=== PATIENT | female | born 1995 | race Caucasian/White ===

== ENCOUNTER 2023-05-21 16:12 | Emergency (ER) | payer OTHER ==
[2023-05-21 16:41] VITALS: BP 110/57
[2023-05-21 17:19] LABS: BILIRUBIN,URINE NEGATIVE (NEGATIVE); GLUCOSE, URINE (UA) NEGATIVE (NEGATIVE); KETONES,URINE (UA) 40 mg/dL (NEGATIVE); LEUKOCYTE ESTERASE, URINE SMALL (NEGATIVE); NITRITE,URINE NEGATIVE (NEGATIVE); OCCULT BLOOD,URINE TRACE-INTA (NEGATIVE); PH,URINE 6.5 PH (5.0-7.5); PROTEIN,URINE NEGATIVE (NEGATIVE); UROBILINOGEN,URINE 0.2 (NORMAL) E.U./dL (NORMAL)
[2023-05-21 17:27] LABS: CLARITY,URINE HAZY (CLEAR)
[2023-05-21 17:28] LABS: HCG UR QUAL NEGATIVE
[2023-05-21] MEDS ORDERED: LIDOCAINE PATCH 5% TOP STA (17:30)
[2023-05-21] MEDS ORDERED: CYCLOBENZAPRINE 10 MG TABLET PO STA (17:30)
--- NOTE | 2023-05-21 17:33 | ED Physician Documentation ---
PD HPI BACK PAIN - Stated complaint Stated Complaint: BACK PX - Chief complaint Chief Complaint: Back Pain - History obtained from History obtained from: Patient - Additional information Additional information: Patient is a 27-year-old female presenting for evaluation of Left lower back pain radiating to the Left buttock. She states her symptoms started yesterday. She has had a prior episode of this recently. She and her significant other recently moved from [place]. Prior to the move she was lifting a heavy box and had similar pain that lasted for about a week. As they have recently moved here she has been unpacking boxes and moving things around and been doing more. She has been using ibuprofen with minimal improvement. No bowel or bladder incontinence, fever, falls or injuries. No IV drug use.No numbness or weakness. Review of Systems Constitutional: denies: Fever Cardiac: denies: Chest pain / pressure Respiratory: denies: Dyspnea GI: denies: Abdominal Pain, Vomiting : denies: Dysuria Musculoskeletal: reports: Back pain PD PAST MEDICAL HISTORY - Present Medications Home Medications: Ambulatory Orders Medication Instructions Recorded Confirmed Cyclobenzaprine [Flexeril] 10 mg PO TID PRN #20 tablet 05/21/23 Lidocaine Patch 5% [Lidoderm Patch] 1 patch TOP DAILY PRN #10 patch 05/21/23 - Allergies Allergies/Adverse Reactions: Allergies Allergy/AdvReac Type Severity Reaction Status Date / Time Sulfa (Sulfonamide Allergy Unknown Verified 05/21/23 16:35 Antibiotics) PD ED PE NORMAL - General General: Alert and oriented X 3, No acute distress, Well developed/nourished - HEENT HEENT: Atraumatic - Neck Neck: Supple, no meningeal sign - Cardiac Cardiac: RRR, Strong equal pulses - Respiratory Respiratory: No respiratory distress, Clear bilaterally - Abdomen Abdomen: Soft, Non tender - Back Back: No spinal TTP, Other (Left lower lumbar tenderness to palpation with no erythema or swelling, Numbness into left buttock) - Extremities Extremities: No deformity, Normal ROM s pain, No calf tenderness / cord Results - Vitals Vitals: Vital Signs - 24 hr 05/21/23 16:27 Temperature 36.6 C Heart Rate 77 Respiratory 20 Rate Blood Pressure 110/57 L O2 Saturation 99 Oxygen O2 Source Room air - Labs Labs: Laboratory Tests 05/21/23 17:06 Urine Color YELLOW Urine Clarity HAZY Urine pH 6.5 Ur Specific [place] 1.010 Urine Protein NEGATIVE Urine Glucose (UA) NEGATIVE Urine Ketones 40 H Urine Occult Blood TRACE-INTA Urine Nitrite NEGATIVE Urine Bilirubin NEGATIVE Urine Urobilinogen 0.2 (NORMAL) Ur Leukocyte Esterase SMALL H Urine RBC 0-5 Urine WBC 11-25 H Ur Squamous Epith Cells MANY Squamous H Urine Bacteria Moderate H Ur Microscopic Review INDICATED Urine Culture Comments NOT INDICATED Urine HCG, Qual NEGATIVE PD Medical Decision Making - ED course ED course: Patient is a 27-year-old female presenting for evaluation of atraumatic low back strain in the setting of recently moving.No red flag signs or symptoms in regards to her back pain. Urine analysis is reviewed. She has no symptoms to suggest a UTI and urine is not a clean-catch with many squamous epithelial cells. She is not . She does have tenderness to the left lower lumbar region into the buttock.Neurovascularly intact. No signs of cord compromise, epidural abscess or hematoma. Do not think x-ray would be helpful at this time and the patient does not have symptoms to suggest need for emergent MRI. Discussed options for treatment and patient is comfortable of trial with continued anti-inflammatories as well as adding on lidocaine patches and muscle relaxers. She is aware of need for close follow-up as well as advised on concerning Symptoms to return for. Departure - Departure Disposition: 01 Home, Self Care Clinical Impression: Radicular low back pain Condition: Stable Instructions: ED Low Back Pain Injury, ED Sciatica Prescriptions: Cyclobenzaprine [Flexeril] 10 mg PO TID PRN #20 tablet PRN Reason: Spasms Lidocaine Patch 5% [Lidoderm Patch] 1 patch TOP DAILY PRN #10 patch PRN Reason: pain Comments: I have sent prescriptions to help you with your symptoms including a muscle relaxer and lidocaine patches. Please continue with ibuprofen or acetaminophen. You may also want to try ice versus heat depending on which feels better and taking it easy over the weekend. I suspect that your symptoms are likely related to a muscle strain versus pinched nerve. If you develop any worsening symptoms such as fever, increased pain, weakness, trouble controlling bowel or bladder then please return to the emergency department. Discharge Date/Time: 05/21/23 18:06
[2023-05-21 17:34] LABS: BACTERIA,URINE Moderate /HPF (None Seen); RBC,URINE 0-5 /HPF (0-5); SQUAMOUS EPITHELIAL CELL,UR MANY Squamous (<= Few)
== END 2023-05-21 18:06 | disposition home or self-care (01) ==
LOC: ED 16:12
DX: M54.16 Radiculopathy, lumbar region (principal); S39.012A Strain of muscle, fascia and tendon of lower back, initial encounter; X50.0XXA Overexertion from strenuous movement or load, initial encounter; Y93.E6 Activity, residential relocation; Y92.009 Unspecified place in unspecified non-institutional (private) residence as the place of occurrence of the external cause
CPT/HCPCS: 81001; 81025; 99283; A9270; 81003; 87086

== ENCOUNTER 2023-09-29 14:45 | Emergency (ER) | payer OTHER ==
[2023-09-29 15:04] VITALS: BP 114/68; O2SAT 98
[2023-09-29 15:57] LABS: CORONAVIRUS 229E-RESP PCR NOT DETECTED; CORONAVIRUS HKU1-RESP PCR NOT DETECTED; CORONAVIRUS NL63-RESP PCR NOT DETECTED; CORONAVIRUS OC43-RESP PCR NOT DETECTED; HUMAN METAPNEUMOVIRUS NOT DETECTED; INFLUENZA A H1 2009- RESP PCR DETECTED; INFLUENZA A- RESP PCR PANEL NOT DETECTED; INFLUENZA B - RESP PCR PANEL NOT DETECTED; RHINOVIRUS/ENTEROVIRUS NOT DETECTED; SARS-CoV-2 -RESP PCR PANEL NOT DETECTED
[2023-09-29 15:58] LABS: B. PARAPERTUSSIS- RESP PCR PAN NOT DETECTED; B. PERTUSSIS- RESP PCR PANEL NOT DETECTED; C. PNEUMONIAE- RESP PCR PANEL NOT DETECTED; M. PNEUMONIAE- RESP PCR PANEL NOT DETECTED; PARAINFLUENZA VIRUS 1 NOT DETECTED; PARAINFLUENZA VIRUS 2 NOT DETECTED; PARAINFLUENZA VIRUS 3 NOT DETECTED; PARAINFLUENZA VIRUS 4 NOT DETECTED; RSV- RESP PCR PANEL NOT DETECTED
--- NOTE | 2023-09-29 17:36 | ED Physician Documentation ---
History of Present Illness - Stated complaint Stated Complaint: SOA/FEVER - Chief complaint Chief Complaint: Fever - Additonal information Additional information: 28-year-old female here for 2 days of cough congestion fever myalgias. She has not received the vaccine for flu this year. Unremarkable past medical history otherwise. Review of Systems Constitutional: reports: Fever, Chills, Myalgias, Fatigue Respiratory: reports: Dyspnea, Cough. 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 : None HEENT: None Psych: None Musculoskeletal: None Derm: None - Past Surgical History Past Surgical History: Yes General: Appendectomy HEENT: Other - Present Medications Home Medications: Ambulatory Orders Medication Instructions Recorded Confirmed Cyclobenzaprine [Flexeril] 10 mg PO TID PRN #20 tablet 05/21/23 Lidocaine Patch 5% [Lidoderm Patch] 1 patch TOP DAILY PRN #10 patch 05/21/23 Oseltamivir Phosphate [Tamiflu] 75 mg PO BID #10 cap 09/29/23 - Allergies Allergies/Adverse Reactions: Allergies Allergy/AdvReac Type Severity Reaction Status Date / Time Sulfa (Sulfonamide Allergy Unknown Verified 09/29/23 14:49 Antibiotics) - Social History Does the pt smoke?: No Smoking Status: Never smoker Does the pt drink ETOH?: No Does the pt have substance abuse?: No - Immunizations Immunizations are current?: Yes - POLST Patient has POLST: No PD ED PE NORMAL - General General: Alert and oriented X 3, No acute distress - HEENT HEENT: Atraumatic - Cardiac Cardiac: No: RRR (Mild tachycardia rate of 110) - Respiratory Respiratory: No respiratory distress, Clear bilaterally - Abdomen Abdomen: Normal bowel sounds, Soft, Non tender - Derm Derm: Normal color, Warm and dry, No rash - Extremities Extremities: No deformity - Neuro Neuro: Alert and oriented X 3 Eye Opening: Spontaneous Motor: Obeys Commands Verbal: Oriented GCS Score: 15 Results - Vitals Vitals: Vital Signs - 24 hr 09/29/23 14:50 Temperature 37.3 C Heart Rate 110 H Respiratory 18 Rate Blood Pressure 114/68 O2 Saturation 98 Oxygen O2 Source Room air - Labs Labs: Laboratory Tests 09/29/23 14:55 Nasal Adenovirus (PCR) NOT DETECTED Nasal B. parapertussis DNA (PCR) NOT DETECTED Nasal Coronavir 229E PCR NOT DETECTED Nasal Coronavir HKU1 PCR NOT DETECTED Nasal Coronavir NL63 PCR NOT DETECTED Nasal Coronavir OC43 PCR NOT DETECTED Nasal Enterovir/Rhinovir PCR NOT DETECTED Nasal Influ A H1 2009 PCR DETECTED A Nasal Influenza B PCR NOT DETECTED Nasal Influenza A PCR NOT DETECTED Nasal Parainfluen 1 PCR NOT DETECTED Nasal Parainfluen 2 PCR NOT DETECTED Nasal Parainfluen 3 PCR NOT DETECTED Nasal Parainfluen 4 PCR NOT DETECTED Nasal RSV (PCR) NOT DETECTED Nasal B.pertussis DNA PCR NOT DETECTED Nasal C.pneumoniae (PCR) NOT DETECTED Howie Human Metapneumo PCR NOT DETECTED Nasal M.pneumoniae (PCR) NOT DETECTED Nasal SARS-CoV-2 (PCR) NOT DETECTED PD Medical Decision Making - ED course Complexity details: reviewed results, d/w patient ED course: 28-year-old female who is otherwise healthy presents for 2 days of cough, cold, congestion, fevers, fatigue. She has tested positive for influenza A. Cardiopulmonary auscultation revealed mild tachycardia but no worrisome breath sounds. Room air sats are 98%. She is within the timeframe for consideration of Tamiflu and would like the prescription. I have sent this to the [facility] in [place]. The usual conservative care measures as well as emergent return precautions were discussed. Departure - Departure Disposition: 01 Home, Self Care Clinical Impression: Influenza A Condition: Stable Record reviewed to determine appropriate education?: Yes Instructions: Medication: Tamiflu (Oseltamivir), ED Flu Prescriptions: Oseltamivir Phosphate [Tamiflu] 75 mg PO BID #10 cap Comments: You have tested positive for influenza A. This is the virus that causes the seasonal flu. It causes body aches fever congestion fatigue and malaise. I am prescribing Tamiflu medication that is an antiviral medicine. Will help shorten the duration of your symptoms. In general you need to stay very well-hydrated. I do recommend that you alternate 500 mg of Tylenol 3 times a day with 600 mg of ibuprofen 3 times a day. This will help with fevers and body aches. You can probably expect a cough to last between 7 and 10 days. Your fever should last somewhere around 3 to 5 days. If you are still having fevers after a week we need to see you again. I do recommend that you get the flu vaccine after you recover from this episode of the fluid you can get sick again this winter with the same virus. Return to the ER if you are having any new or worsening symptoms.
== END 2023-09-29 17:48 | disposition home or self-care (01) ==
LOC: ED 14:45
DX: J10.1 Influenza due to other identified influenza virus with other respiratory manifestations (principal); Z11.52 Encounter for screening for COVID-19
CPT/HCPCS: 87633; 99283

== ENCOUNTER 2024-03-01 08:00 | Outpatient (CLI) | payer OTHER ==
[2024-03-01 08:46] LABS: BILIRUBIN,URINE NEGATIVE (NEGATIVE); GLUCOSE, URINE (UA) NEGATIVE (NEGATIVE); KETONES,URINE (UA) TRACE mg/dL (NEGATIVE); LEUKOCYTE ESTERASE, URINE SMALL (NEGATIVE); NITRITE,URINE NEGATIVE (NEGATIVE); OCCULT BLOOD,URINE NEGATIVE (NEGATIVE); PROTEIN,URINE NEGATIVE (NEGATIVE); UROBILINOGEN,URINE 0.2 (NORMAL) E.U./dL (NORMAL)
[2024-03-01 08:48] LABS: CLARITY,URINE SL. CLOUDY (CLEAR)
[2024-03-01 09:20] LABS: AMORPHOUS SEDIMENT,UR Moderate /LPF; BACTERIA,URINE Moderate /HPF (None Seen); RBC,URINE 0-5 /HPF (0-5); SQUAMOUS EPITHELIAL CELL,UR MANY Squamous (<= Few)
== END 2024-03-01 23:59 | disposition home or self-care (01) ==
LOC: LAB.WC 08:00
PROVIDERS: ATTEND Nurse Practitioner
DX: Z34.90 Encounter for supervision of normal pregnancy, unspecified, unspecified trimester (principal)
CPT/HCPCS: 81001; 87086

== ENCOUNTER 2024-03-03 09:56 | Outpatient (CLI) | payer OTHER ==
[2024-03-03 12:09] LABS: BASOPHILS # (AUTO) 0.1 10^3/uL (0.0-0.1); BASOPHILS % (AUTO) 0.7 %; EOSINOPHILS # (AUTO) 0.1 10^3/uL (0.0-0.7); EOSINOPHILS % (AUTO) 1.7 %; HCT - HEMATOCRIT 42.3 % (37.0-47.0); HGB - HEMOGLOBIN 14.3 g/dL (12.0-16.0); LYMPHOCYTES # (AUTO) 1.8 10^3/uL (1.5-3.5); LYMPHOCYTES % (AUTO) 25.3 %; MEAN CORPUSCULAR HGB CONC 33.8 g/dL (32.0-36.0); MEAN CORPUSCULAR VOLUME 85.8 fL (81.0-99.0); MEAN PLATELET VOLUME 10.9 fL (7.9-10.8); MONOCYTES # (AUTO) 0.3 10^3/uL (0.0-1.0); MONOCYTES % (AUTO) 4.7 %; NEUTROPHILS # (AUTO) 4.8 10^3/uL (1.5-6.6); NEUTROPHILS % (AUTO) 67.5 %; PLT - PLATELET COUNT 248 10^3/uL (130-450); RED BLOOD COUNT 4.93 10^6/uL (4.20-5.40); RED CELL DISTRIBUTION WIDTH 12.9 % (12.0-15.0); WHITE BLOOD COUNT 7.2 x10^3/uL (4.8-10.8)
[2024-03-04 06:12] LABS: HBsAG SCREEN Negative (Negative); RPR Non Reactive (Non Reactive)
[2024-03-04 09:09] LABS: VARICELLA-ZOSTER AB IGG 575 index (Immune >165)
[2024-03-05 09:07] LABS: HIV SCREEN 4TH GENERATION Non Reactive (Non Reactive)
[2024-03-05 12:07] LABS: HCV AB Non Reactive (Non Reactive)
== END 2024-03-03 09:57 | disposition home or self-care (01) ==
LOC: LAB.N 09:56
PROVIDERS: ATTEND Nurse Practitioner
DX: Z34.90 Encounter for supervision of normal pregnancy, unspecified, unspecified trimester (principal)
CPT/HCPCS: 36415; 85025; 86592; 86762; 86787; 86803; 86850; 86900; 86901; 87340; 87389

== ENCOUNTER 2024-03-21 12:11 | Outpatient (CLI) | payer OTHER ==
--- NOTE | 2024-03-21 14:26 | Ultrasound Report ---
PROCEDURE: OB 1st Trimester INDICATIONS: POSITIVE TEST OUTSIDE/PRIOR DATING DATA: Last menstrual period (LMP): 01/06/2024. LMP-based estimated date of delivery (DARRELL): 10/12/2024. First dating scan (date and location): Today's exam. Estimated date of delivery (DARRELL) from first dating scan: 10/15/2024. TECHNIQUE: Real-time scanning was performed of the fetus and maternal pelvic organs, with image documentation. COMPARISON: None. FINDINGS: Intrauterine gestational sac present. Embryo: Present, measuring 3.44 cm, 10 weeks 2 days Heart rate: 169 bpm. Other: No perigestational fluid collection. Measurement variability in dating: +/- 4 weeks by LMP, +/- 7 days by mean sac diameter (use before 6 weeks gestation if crown-rump length not able to be measured), +/- 5 days by crown-rump length (6-12 weeks gestation). Maternal organs: Ovaries appear within normal limits. Right-sided corpus luteum present. IMPRESSION: Single living intrauterine at 10 weeks 2 days, DARRELL of 10/15/2024. Reviewed by: Deon Aguirre MD on 03/21/2024 2:24 PM PDT Approved by: Deon Aguirre MD on 03/21/2024 2:24 PM PDT Station ID: [id number]
== END 2024-03-21 12:12 | disposition home or self-care (01) ==
LOC: DI 12:11
PROVIDERS: ATTEND Nurse Practitioner
DX: Z34.91 Encounter for supervision of normal pregnancy, unspecified, first trimester (principal)

== ENCOUNTER 2024-03-28 08:00 | Outpatient (CLI) | payer OTHER ==
[2024-03-29 20:05] LABS: CHLAMYDIA TRACHOMATIS DNA NEGATIVE (NEGATIVE); NEISSERIA GONORRHOEAE DNA NEGATIVE (NEGATIVE); TRICHOMONAS VAGINALIS DNA NEGATIVE (NEGATIVE)
== END 2024-03-28 23:59 | disposition home or self-care (01) ==
LOC: LAB.WC 08:00
PROVIDERS: ATTEND Obstetrics & Gynecology
DX: Z11.3 Encounter for screening for infections with a predominantly sexual mode of transmission (principal)
CPT/HCPCS: 87491; 87591; 87661

== ENCOUNTER 2024-04-03 08:14 | Outpatient (CLI) | payer OTHER | END 2024-04-03 08:15 | disposition home or self-care (01) | LOC: LAB 08:14 | PROVIDERS: ATTEND Obstetrics & Gynecology | DX: Z34.01 Encounter for supervision of normal first pregnancy, first trimester (principal); Z36.89 Encounter for other specified antenatal screening ==

== ENCOUNTER 2024-04-10 18:58 | Emergency (ER) | payer OTHER ==
--- NOTE | 2024-04-10 20:10 | Ultrasound Report ---
PROCEDURE: OB 1st Trimester INDICATIONS: GLF OUTSIDE/PRIOR DATING DATA: Last menstrual period (LMP): 01/06/2024. LMP-based estimated date of delivery (DARRELL): 10/12/2024. First dating scan (date and location): 03/21/2024. Estimated date of delivery (DARRELL) from first dating scan: 10/15/2024. TECHNIQUE: Real-time scanning was performed of the fetus and maternal pelvic organs, with image documentation. COMPARISON: Prior OB ultrasound 03/21/2024. FINDINGS: Intrauterine gestational sac present. Embryo: Single living intrauterine gestation, posterior placenta, heart rate observed. [place]-r ump length is 7.5 cm which correlates with a current gestational age of 13 weeks 4 days. Heart rate: 157 bpm. Other: No perigestational fluid collection. There has been appropriate interval growth with reference to the first OB ultrasound. Measurement variability in dating: +/- 4 weeks by LMP, +/- 7 days by mean sac diameter (use before 6 weeks gestation if crown-rump length not able to be measured), +/- 5 days by crown-rump length (6-12 weeks gestation). Maternal organs: Ovaries appear within normal limits. IMPRESSION: No evidence of placental abruption or demise. Appropriate interval growth, viable intrauterine gestation. The delivery date is projected to be centered on 10/15/2024 +/- 5 days based on the first O B ultrasound. Reviewed by: Daniel Alvares MD on 04/10/2024 8:09 PM PDT Approved by: Daniel Alvares MD on 04/10/2024 8:09 PM PDT Station ID: [id number]
--- NOTE | 2024-04-10 20:43 | ED Physician Documentation ---
History of Present Illness - Stated complaint Stated Complaint: GLF/13+WKS PREG - Chief complaint Chief Complaint: General - History obtained from History obtained from: Patient - Additonal information Additional information: The patient comes to the emergency department chief complaint of lower abdominal cramping after hitting her back against a counter today. She is 13 weeks and states that somebody she was working with fell into her, causing her to stumble backward and hit her back against a counter. She states that after that, she had a dull cramping across her low abdomen. No vaginal bleeding. She had not been having any symptoms prior to this. No dysuria. No frequency. No fevers or chills. No nausea or vomiting. PD PAST MEDICAL HISTORY - Past Medical History Cardiovascular: None Respiratory: None Neuro: None Endocrine/Autoimmune: None GI: None NURSE CLINICAL: None : None HEENT: None Psych: None Musculoskeletal: None Derm: None - Past Surgical History Past Surgical History: Yes General: Appendectomy HEENT: Other - Present Medications Home Medications: Ambulatory Orders Medication Instructions Recorded Confirmed Cyclobenzaprine [Flexeril] 10 mg PO TID PRN #20 tablet 05/21/23 Lidocaine Patch 5% [Lidoderm Patch] 1 patch TOP DAILY PRN #10 patch 05/21/23 Oseltamivir Phosphate [Tamiflu] 75 mg PO BID #10 cap 09/29/23 - Allergies Allergies/Adverse Reactions: Allergies Allergy/AdvReac Type Severity Reaction Status Date / Time Sulfa (Sulfonamide Allergy Unknown Verified 04/10/24 19:08 Antibiotics) - Social History Does the pt smoke?: No Smoking Status: Never smoker Does the pt drink ETOH?: No Does the pt have substance abuse?: No - Immunizations Immunizations are current?: Yes - POLST Patient has POLST: No PD ED PE NORMAL - Vitals Vital signs reviewed: Yes - General General: Alert and oriented X 3, No acute distress, Well developed/nourished - HEENT HEENT: Atraumatic, EOMI, Moist mucous membranes - Neck Neck: Supple, no meningeal sign - Cardiac Cardiac: RRR, No murmur - Respiratory Respiratory: No respiratory distress, Clear bilaterally - Abdomen Abdomen: Soft, Non tender, Other (Appears slightly gravid, consistent with dates.) - Derm Derm: Normal color, Warm and dry, No rash - Extremities Extremities: No deformity - Neuro Neuro: Other (Alert, grossly intact.) - Psych Psych: Normal mood, Normal affect Results - Vitals Vitals: Vital Signs - 24 hr 04/10/24 19:03 Temperature 36.3 C L Heart Rate 86 Respiratory 16 Rate Blood Pressure 113/69 O2 Saturation 100 Oxygen O2 Source Room air - Rads (name of study) OB ultrasound Relevant Findings:: Prelim report reviewed (No concerning findings.) PD Medical Decision Making - ED course Complexity details: reviewed results, re-evaluated patient, considered differential, d/w patient, d/w family ED course: The patient's exam was benign and she was not having any bleeding. Her ultras ound was reassuring with no abnormalities and a viable intrauterine with good heart rate. I discussed with the patient that at this point, there is no evidence of any atraumatic stress to the . We have discussed usual indications for follow-up and return. Departure - Departure Disposition: 01 Home, Self Care Clinical Impression: Abdominal pain affecting Condition: Stable Instructions: Preg 2nd Trimester Comments: Your ultrasound looks great. There is no evidence of any abnormality with the or its structures. The baby's heart rate is well within normal limits. You may take Tylenol as needed for any discomfort. Although it is not clear exactly what is causing the cramping, and may just be related to your back pain and most likely, will resolve on its own. Please follow-up with your TECHNOLOGY SALES REPRESENTATIVE for further concerns.
[2024-04-10 20:59] VITALS: BP 114/66; O2SAT 99
== END 2024-04-10 20:50 | disposition home or self-care (01) ==
LOC: ED 18:58
DX: O99.891 Other specified diseases and conditions complicating pregnancy (principal); M54.9 Dorsalgia, unspecified; R10.30 Lower abdominal pain, unspecified; W22.09XA Striking against other stationary object, initial encounter; Y93.89 Activity, other specified; Y92.511 Restaurant or cafe as the place of occurrence of the external cause; Y99.0 Civilian activity done for income or pay; Z3A.13 13 weeks gestation of pregnancy
CPT/HCPCS: 1040M; 76801; 99283; 99284

== ENCOUNTER 2024-05-05 08:01 | Outpatient (CLI) | payer OTHER ==
[2024-05-08 13:10] LABS: AFP MOM 1.37 (.); AFP VALUE 46.6 ng/mL (.); GEST. AGE ON COLLECTION DATE 16.7 weeks (.); GESTAT. AGE METHOD Ultrasound (.); INSULIN DEP DIABETES No (.); MATERNAL AGE AT EDD 28.3 yr (.); MULTIPLE GESTATION No (.); OPEN SPINA BIFIDA RISK 1 IN 3920 (.); RACE Caucasian (.); RESULTS Report (.); TEST RESULTS *Screen Negative* (.); WEIGHT 171 lbs (.)
== END 2024-05-05 08:02 | disposition home or self-care (01) ==
LOC: LAB 08:01
PROVIDERS: ATTEND Obstetrics & Gynecology
DX: Z36.89 Encounter for other specified antenatal screening (principal)
CPT/HCPCS: 36415; 82105

== ENCOUNTER 2024-05-30 08:07 | Outpatient (CLI) | payer OTHER ==
--- NOTE | 2024-05-30 12:39 | Ultrasound Report ---
PROCEDURE: OB Anatomy Scan INDICATIONS: SUPERVISON OF OUTSIDE/PRIOR DATING DATA: Last menstrual period (LMP): 01/06/2024. LMP-based estimated date of delivery (DARRELL): 10/12/2024. First dating scan (date and location): 03/21/2024. Estimated date of delivery (DARRELL) from first dating scan: 10/15/2024. The below data below was generated using the ultrasound DARRELL of 10/15/2024 TECHNIQUE: Real-time scanning was performed of the fetus, with image documentation and biometric measurements. Endovaginal scanning: Not performed. COMPARISON: 04/10/2024 FINDINGS: General: A single living intrauterine gestation is present. Presentation: Variable Placenta: Placental position is posterior, without previa. Amniotic fluid index: 13.5 cm, within normal limits for gestational age. heart rate: 150 beats per minute. Maternal cervical canal: 3.7 cm long; normal length is 2.5 cm or more. biometrics: Biparietal diameter: 4.7 cm, 20 weeks 2 days, 30% Head circumference: 17.9 cm, 20 weeks 2 days, 25% Abdominal circumference: 15.7 cm, 20 weeks 6 days, 49% Femur length: 3.2 cm, 20 weeks 0 days, 19.5% Estimated gestational age from initial scan: 20 weeks 5 days Composite gestational age from present scan: 20 weeks 2 days Estimated weight and percentile: 356 g, 32% Measurement variability in biometric dating: +/- 10 days from 12-20 weeks gestation, +/- 2 weeks from 20-30 weeks gestation, +/- 3 weeks at 30 weeks gestation or later. Anatomic survey: Neuro: Ventricles are normal at less than 10 mm. Cisterna magna is normal at 3-11 mm. Cerebellum i s normal in size and morphology. Nuchal skin fold: Normal at less than 6 mm between 14 and 20 weeks gestational age. Face: Nose and lips, facial profile are normal. Spine: No evidence for spina bifida. Heart: 4-chambered heart is present, with normal ventricular outflow tracts. Diaphragm: Diaphragm is intact. Stomach: Left-sided stomach is present. Kidneys: No hydronephrosis. Normal is less than 5 mm in 2nd trimester, less than 7 mm in 3rd trimester. Cord: 3 vessel cord has orthotopic insertion. Bladder: Normal in size. Extremities: All 4 extremities are visualized. IMPRESSION: 1.Single live intrauterine consistent with 20 weeks and 2 days. 2.Normal anatomic survey. Reviewed by: Caio Jordan MD on 05/30/2024 12:38 PM PDT Approved by: Caio Jordan MD on 05/30/2024 12:38 PM PDT Station ID: [id number]
== END 2024-05-30 08:08 | disposition home or self-care (01) ==
LOC: DI 08:07
PROVIDERS: ATTEND Obstetrics & Gynecology
DX: Z34.92 Encounter for supervision of normal pregnancy, unspecified, second trimester (principal); Z36.89 Encounter for other specified antenatal screening

== ENCOUNTER 2024-07-19 07:50 | Outpatient (CLI) | payer OTHER ==
[2024-07-19 09:02] LABS: HCT - HEMATOCRIT 34.7 % (37.0-47.0); HGB - HEMOGLOBIN 11.6 g/dL (12.0-16.0); MEAN CORPUSCULAR HEMOGLOBIN 30.8 pg (27.0-31.0); MEAN CORPUSCULAR HGB CONC 33.4 g/dL (32.0-36.0); MEAN PLATELET VOLUME 9.5 fL (7.9-10.8); RED BLOOD COUNT 3.77 10^6/uL (4.20-5.40); RED CELL DISTRIBUTION WIDTH 13.3 % (12.0-15.0); WHITE BLOOD COUNT 10.1 x10^3/uL (4.8-10.8)
[2024-07-20 07:10] LABS: RPR Non Reactive (Non Reactive)
== END 2024-07-19 07:51 | disposition home or self-care (01) ==
LOC: LAB 07:50
PROVIDERS: ATTEND Obstetrics & Gynecology
DX: Z34.90 Encounter for supervision of normal pregnancy, unspecified, unspecified trimester (principal); Z36.89 Encounter for other specified antenatal screening
CPT/HCPCS: 36415; 82950; 85027; 86592

== ENCOUNTER 2024-10-13 04:52 | Inpatient (IN) ==
[2024-10-13] MEDS ORDERED: LABETALOL 20 MG/4 ML SYRINGE IVP PRN ×4 (05:14→21:26)
[2024-10-13] MEDS ORDERED: TRANEXAMIC ACID IN NACL 1,000 MG/100 ML BAG IV PRN (05:14)
[2024-10-13] MEDS ORDERED: NIFEdipine 10 MG CAPSULE PO PRN ×2 (05:14→21:26)
[2024-10-13] MEDS ORDERED: OXYTOCIN 10 UNIT/ML VIAL IM PRN (05:14)
[2024-10-13] MEDS ORDERED: SODIUM CHLORIDE FLUSH 0.9% 10 ML SYRINGE IVP PRN (05:14)
[2024-10-13] MEDS ORDERED: TERBUTALINE 1 MG/ML VIAL SUBQ PRN (05:14)
[2024-10-13] MEDS ORDERED: OXYTOCIN/SODIUM CHLORIDE 500 ML IV PRN (05:14)
[2024-10-13] MEDS ORDERED: hydrALAZINE INJ 20 MG/ML VIAL IVP PRN (05:14)
[2024-10-13] MEDS ORDERED: miSOPROStoL 200 MCG TABLET BC PRN (05:14)
[2024-10-13] MEDS ORDERED: METHYLERGONOVINE 0.2 MG/ML VIAL IM PRN (05:14)
[2024-10-13] MEDS ORDERED: lidocaine 1% 20 ML MDV ID PRN (05:14)
[2024-10-13] MEDS ORDERED: miSOPROStoL 200 MCG TABLET PR PRN (05:14)
[2024-10-13] MEDS ORDERED: fentaNYL 100 MCG/2 ML VIAL IVP PRN (05:14)
[2024-10-13 05:52] LABS: BASOPHILS # (AUTO) 0.1 10^3/uL (0.0-0.1); BASOPHILS % (AUTO) 0.5 %; EOSINOPHILS # (AUTO) 0.2 10^3/uL (0.0-0.7); EOSINOPHILS % (AUTO) 1.3 %; HCT - HEMATOCRIT 39.4 % (37.0-47.0); HGB - HEMOGLOBIN 13.7 g/dL (12.0-16.0); LYMPHOCYTES # (AUTO) 2.6 10^3/uL (1.5-3.5); LYMPHOCYTES % (AUTO) 20.5 %; MEAN CORPUSCULAR HEMOGLOBIN 30.7 pg (27.0-31.0); MEAN CORPUSCULAR HGB CONC 34.8 g/dL (32.0-36.0); MEAN CORPUSCULAR VOLUME 88.3 fL (81.0-99.0); MEAN PLATELET VOLUME 10.8 fL (7.9-10.8); MONOCYTES % (AUTO) 7.8 %; NEUTROPHILS # (AUTO) 8.8 10^3/uL (1.5-6.6); NEUTROPHILS % (AUTO) 68.7 %; PLT - PLATELET COUNT 231 10^3/uL (130-450); RED BLOOD COUNT 4.46 10^6/uL (4.20-5.40); RED CELL DISTRIBUTION WIDTH 12.5 % (12.0-15.0); WHITE BLOOD COUNT 12.8 x10^3/uL (4.8-10.8)
[2024-10-13] MEDS: LACTATED RINGERS 1,000 ML IV PRN (05:52)
[2024-10-13 06:12] LABS: ALBUMIN 3.7 g/dL (3.2-5.5); ALBUMIN/GLOBULIN RATIO 1.1 (1.0-2.2); BILIRUBIN,TOTAL 0.3 mg/dL (0.2-1.0); CALCIUM 9.7 mg/dL (8.5-10.3); CREATININE 0.8 mg/dL (0.6-1.3); TOTAL PROTEIN 7.1 g/dL (6.4-8.9)
--- NOTE | 2024-10-13 07:11 | HISTORY & PHYSICAL EXAMINATION ---
Admit History Smoking Status: Never smoker Other Maternal History Other Maternal History: 29-year-old at 40 weeks 1 day gestation presenting for contractions She has good movement. Denies loss of fluid. No JACOBS/BV or RUQP. No vaginal bleeding. Denies nausea and vomiting. Denies urinary urgency or dysuria. All other symptoms reviewed and were negative except per HPI. Course 29 yo LMP: 01/06/2024 DARRELL by LMP: 10/12/2024 03/21/2024/10+2/C/W (EDC by u/s dating 10/15/2024) Final DARRELL: 10/12/2024: FOB: Ken in [employer], [employer]. will deploy in mid October. Sola works at [employer] [place] and will be able to bring her baby with her. to [place] 04/2023. no family here, but they will come after delivery to support her. Her parents were in [employer], live in [place]. Good friend in [place] just had baby, very supportive. getting Masters in Curriculum Design. One class left after this. [facility]. Tachycardia -Likely related to anxiety, although does not feel this is significant. 09/11 noted rarely in very short bursts. -Stopped metoprolol prior to . No recent episodes. FOB with family history of Joe Sachs. very remote, decided not to test. Pre- Weight:172.0 BMI: 27.86 Blood type: O+ Antibody: negative CBC: PLT 248 HCT 42.3 HGB 14.3 RUB: immune VZV: immune HBsAg: negative HepC: NR RPR/AB-EIA:NR HIV:NR PAP:02/14/2020 - Normal GC/CT: negative HSV: denies in self and partner Genetic testin04/03/2024 MaterniT- Negative AFp 05/05 Negative Covid: last sick in 2020, no vaccines Flu: given 08/15 RSV 08/31 FAS: 05/30 WNL Placenta: posterior w/o previa Cord: 3VC FREDI: WNL EFW: 356g 32%ile 50gm OGCT: 100 TDAP: discussed and accepted Breast Pump:Prescription given 04/24 3rd trimester CBC: 11.6/34.7/244 GBS:09/14 POSITIVE Delivery plan: hopes no epidural. scared if needles. discussed. Contraception:Previously OCPs, patch. Discussed options, but unsure of decision. OB Visit Log Initial Weight: 172 lb Date EGA Weight BP Fundal ht Pres HR Movement CTX Edema Cerv Dil Cerv Eff % Sta 08/31/24 34w 0d 195 lb 6 oz(+23 lb 6 oz) / 33 vertex 150 active occasional absent 09/11/24 35w 4d 198 lb 2 oz(+26 lb 2 oz) 106 35 v 134 active occasional 1+ 09/14/24 36w 0d 199 lb 6 oz(+27 lb 6 oz) 09/19/24 36w 5d 200 lb(+28 lb) 36 135 active occasional 1+ 09/25/24 37w 4d 197 lb(+25 lb) 114/ 36 150 active absent 1+ 10/04/24 38w 6d 201 lb 6 oz(+29 lb 6 oz) 36 vertex by US 145 ac tive occasional 1+ 10/09/24 39w 4d 200 lb(+28 lb) 104/ 37 135 active absent 1+ 0 0 Notes Visit Date: 10/09/24 Last Updated by: Rupert Da Silva MD Wants to schedule induction if not in labor soon. Will call when ready. Desires cervical exam/ possible membrane sweep. Discused labor precautions. Visit Date: 10/04/24 Last Updated by: Leslie Lopez MD Here alone. discussed induction. any time after tomorrow. Done with her current class after one more assignment. will finish her paper today. Then only one more class, starting in January and she gets her masters. labor precautions. will think about induction and let us know or will be back in 5 days to discuss further. Visit Date: 09/25/24 Last Updated by: Rupert Da Silva MD No complaints today. No contractions. Ken here today, excited as this is hiis first time to hear the heartbeat. Baby is very active. Discussed labor precautions. Visit Date: 09/19/24 Last Updated by: Leslie Lopez MD here alone. feeling better. heart feels fine, no tachycardia episodes. Able to eat and drink now. on maternity leave officially. last day yesterday. had done tour. labor precautions. -[facility] Visit Date: 09/14/24 Last Updated by: Leslie Lopez MD patient is here for an acute visit. feeling awful. vomiting, crampy, some brown chunky discharge. couldn't sleep. temp 97.9 but appears flushed and puffy. sent to center for further evaluation, brigid, iv fluids. Dr. Can cardiac monitor technician today and I called her and charge out clerk. GBS collected. Visit Date: 09/11/24 Last Updated by: Leslie Lopez MD has been on tour. gbs next visit discussed. Baby girl Adelia, from her favorite movie. labor/ preE discussed. to be deployed in mid Oct. family coming to support. has a friend moving to [place] soon to be supervisor rod placing of [employer] there. 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 -[facility] Visit Date: 08/31/24 Last Updated by: Phi Devlin MD Sola reports intermittent tightening and cramps, a few times per day, not regular. RSV vaccine given, declines covid vaccine. Reviewed labor, movement precautions. HPI Current : Current EDU 10/12/24 Gestation 40 Weeks and 1 Days Para 0 Vital Signs Pulse Rate 82 10/13/24 06:02 Respiratory Rate 16 10/13/24 06:02 Blood Pressure 117/78 10/13/24 06:02 Pulse Rate 82 10/13/24 06:02 Respiratory Rate 16 10/13/24 06:02 Blood Pressure 117/78 10/13/24 06:02 NST Procedure NST Procedure: NST Procedure Start Date 10/13/24 Start Time 05:01 Stop Time 05:21 Patient States Movement Yes Meds/Allgy Home Medications Ambulatory Orders Medication Instructions Recorded Confirmed vits no.126-ferrous fum 1 tab PO QDAY 08/28/24 10/09/24 28 mg iron-folic acid 800 mcg tablet (Classic ) Allergies Allergies Allergy/AdvReac Type Severity Reaction Status Date / Time Sulfa (Sulfonamide Allergy Rash Verified 10/09/24 10:48 Antibiotics) [facility] Surgical History Surgical History (Updated 08/31/24 @ 09:07 by Cherelle Barry LPN) Hx of wisdom tooth extraction Hx of appendectomy Social History Social History Smoking Status: Never smoker Do you dip or chew tobacco?: No Do you vape?: No Do you feel safe in your home environment?: Yes Suffered physical, verbal, emotional, or financial abuse?: No History of Abuse: No POLST Patient has POLST: No Physical Abdominal Exam Vital Signs: Pulse Resp BP 82 16 117/78 10/13/24 06:02 10/13/24 06:02 10/13/24 06:02 Other Notes Labor Progress Note/Additional Text: General: Alert, oriented, no acute distress Head: Normal cephalic atraumatic Eyes: PERRLA, extraocular motions intact. Respiratory: Normal rate of respiration. No accessory muscle use, normal respiratory effort. Cardiovascular: Regular rate and rhythm Abdomen: Gravid, nontender, nondistended Extremities: Normal range of motion Neuro: Oriented x3. Normal movements Psych: Appropriate mood and affect. Normal judgment and insight SVE: 3/70/0 (Recheck 5/80/0) FHT: 135 bpm baseline, moderate variability, accelerations present, no decelerations (Did have a prolonged deceleration earlier with severe vomiting) [place]: 2-5 Plan for Labor Plan For Labor I expect patient to be DC'd or transferred within 96 hours.: Yes Conclusion/Plan Problem List (1) 40 weeks gestation of : Plan: Admit to L&D, admit labs, epidural at patient's request, tub PRN. Will augment if necessary. (2) Uterine contractions: Lab Results 10/13/24 05:30 10/13/24 05:30
[2024-10-13] MEDS: AMPICILLIN 2 GM in SODIUM CHLORIDE 0.9% MINIBAG 100 ML IV ONE (08:15)
[2024-10-13] MEDS: AMPICILLIN 1 GM in SODIUM CHLORIDE 0.9% MINIBAG 100 ML IV SCH (11:51)
--- NOTE | 2024-10-13 15:30 | PROVIDER PROGRESS NOTE ---
Labor Progress Note Uterine Monitoring Uterine Monitoring Mode: positive External toco Contraction Frequency (min/apart): 2-4 Contraction Intensity: positive Moderate to strong Monitoring Monitor Mode: positive External ultrasound Heart Rate Baseline: 130 Heart Rate Variability: positive Moderate (6-25 bmp) Accelerations: positive Present, 15x15 Decelerations: positive None Strip Review: positive Category I Vaginal Exam Dilation (in cm): 8 Effacement (%): 100 Station: 0 Cervical Position: Midposition Labor Progress Note Labor Progress Note/Additional Text: 29yo at 40.1w admitted in active labor - AROM 1515, clear - SVE - Pain relief: Nitrous oxide now - Anticipate
[2024-10-13] MEDS: OXYTOCIN/SODIUM CHLORIDE 500 ML IV PRN (20:50)
[2024-10-13] MEDS ORDERED: HYDROCORTISONE 1% CREAM 28 GM TUBE TOP PRN (21:26)
[2024-10-13] MEDS ORDERED: NALOXONE 0.4 MG/ML VIAL IVP PRN (21:26)
[2024-10-13] MEDS ORDERED: WITCH HAZEL/GLYCERIN 1 PAD TOP PRN (21:26)
[2024-10-13] MEDS ORDERED: LABETALOL 5 MG/1 ML 20 ML MDV IVP PRN (21:26)
[2024-10-13] MEDS ORDERED: SIMETHICONE CHEW 80 MG TABLET PO PRN (21:26)
--- NOTE | 2024-10-13 21:40 | DELIVERY NOTE ---
Delivery Note Labor Labor: positive Spontaneous and Augmented by ARM Delivery Method Delivery Method: positive Vacuum assist Presentation Presentation: positive Vertex and BOO - left occiput anterior Nuchal Cord Nuchal Cord: positive None Anesthetic Anesthetic: positive Lidocaine - 1% plain Volume: positive 4cc Amniotic Fluid Description Amniotic Fluid Description: positive Clear Vacuum Use Indication for Vacuum Use: positive Suspicion of immediate or potential compromise Type of Vacuum Cup: positive Cup: Rigid Vacuum Extraction: positive Successful Number of pop-offs: 0 Episiotomy Type Episiotomy Type: positive None Laceration Laceration: positive 2nd degree (midline vaginal/perineal) Suture Suture Type: positive Vicryl Suture Size: positive 3-0 Delivery Outcome Delivery Outcome: positive Livebirth : positive Placed in direct skin contact with mother, Suctioned, Bulb syringe, Stimulated, Warmed, [place] used and Warmer used sex: positive Female Cord Cord: positive 3 vessels Placenta Placenta: positive Intact and Spontaneous Estimated Blood Loss Estimated Blood Loss (in cc): 250 Post Delivery Events Post Delivery Events: positive Shoulder dystocia Delivery Comments (Free Text/Narrative) Delivery Comments (Free Text/Narrative): 10/100/+1 and pushing began with good efforts. Pushing for about 2 hours and then fetus with repetitive late decelerations to 80s, Informed verbal consent for VAVD due to NRFHT. Bladder emptied. Vacuum applied to flexion point, +3 station. No detachments. Gentle guidance for 6 minutes over two contractions. Head delivered BOO. Shoulders did not easily deliver and shoulder dystocia identified. Posterior arm moved, unable to deliver and then shoulders rotated. Monica performed and anterior shoulder delivered followed by body. Placed on mother's abdomen. Cord clamped and cut. evaluated at [facility]. Counter Professional present. Vagina and perineum inspected- second degree laceration repaired in usual fashion with 3-0 Vicryl. Lidocaine infiltrated prior to repair. Hemostasis. Fundus firm. Patient tolerated delivery well, family bonding at bedside.
[2024-10-13] MEDS ORDERED: IBUPROFEN 800 MG TABLET PO PRN (22:00)
[2024-10-13] MEDS: SODIUM CHLORIDE FLUSH 0.9% 10 ML SYRINGE IVP SCH (23:50)
[2024-10-13] MEDS: ACETAMINOPHEN 500 MG TABLET PO SCH (23:50)
--- NOTE | 2024-10-14 08:32 | PROVIDER PROGRESS NOTE ---
Subjective Subjective Subjective: Subjective Patient reports she is doing well. Lochia appropriate. Denies heavy bleeding. Ambulating. Pelvic and abdominal pain well-controlled. Tolerating oral intake. Diet: Regular. Voiding without difficulty. Passing flatus. Denies BM. Patient is bonding with baby in room Breast feeding going well. Denies feeling lightheaded, dizzy or excessively fatigued. Objective General: Alert, oriented, no apparent distress. Cardiovascular: Regular rate. Regular rhythm. Lungs: No increased work of breathing. Abdomen: Uterus firm. Below umbilicus. No guarding or rebound. Extremities: No pain on palpation. No cords palpated. Distal pulses intact. Current Medications Current Medications Current Medications: Current Medications Generic Name Dose Route Start Last Admin Trade Name Freq PRN Reason Stop Dose Admin Acetaminophen 1,000 mg 10/13/24 22:00 10/13/24 23:50 Acetaminophen 500 Mg Tablet PO Not Given Q8HR CHAS Docusate Sodium 100 mg 10/14/24 09:00 Docusate Sodium 100 Mg Capsule PO BID CHAS Fentanyl 50 mcg 10/13/24 05:14 Fentanyl 100 Mcg/2 Ml Vial IVP Q1H PRN Severe Pain (score 7-10) Hydralazine HCl 5 - 10 mg 10/13/24 05:14 Hydralazine Inj 20 Mg/Ml Vial IVP Q20M PRN SBP> or= 160 OR DBP> or= 110 Protocol Hydrocortisone 1 applic 10/13/24 21:26 Hydrocortisone 1% Cream 28 Gm Tube TOP QID PRN Hemorrhoids Lactated Ringer's 500 mls @ 999 mls/hr 10/13/24 05:14 10/13/24 06:15 Lr IV 0 mls/hr PRN PRN Infusion distress Oxytocin/Sodium Chloride 500 mls @ 999 mls/hr 10/13/24 05:14 Pitocin/Sodium Chloride IV PRN PRN POST- HEMORR PREVENTION Protocol 999 MILLIUNIT/MIN Tranexamic Acid 1,000 mg in 100 mls @ 600 mls/hr 10/13/24 05:14 Tranexamic 1,000 Mg/100ml-Nacl IV Q30M PRN EBL >1200mL and within 3hr Oxytocin/Sodium Chloride 500 mls @ 999 mls/hr 10/13/24 21:26 10/13/24 21:30 Pitocin/Sodium Chloride IV Infused PRN PRN Titration POST- HEMORR PREVENTION Protocol 999 MILLIUNIT/MIN Ibuprofen 800 mg 10/13/24 22:00 Ibuprofen 800 Mg Tablet PO Q8H PRN Moderate Pain (Level 4-6) Labetalol HCl 20 - 80 mg 10/13/24 05:14 Labetalol 20 Mg/4 Ml Syringe IVP Q10M PRN SBP> or= 160 OR DBP> or= 110 Protocol Labetalol HCl 20 mg 10/13/24 05:14 Labetalol 20 Mg/4 Ml Syringe IVP .ONCE PRN SBP> or= 160 OR DBP> or= 110 Protocol Labetalol HCl 20 - 40 mg 10/13/24 05:14 Labetalol 20 Mg/4 Ml Syringe IVP Q10M PRN SBP> or= 160 OR DBP> or= 110 Protocol Labetalol HCl 20 - 80 mg 10/13/24 21:26 Labetalol 5 Mg/1 Ml 20 Ml Mdv IVP Q10M PRN SBP> or= 160 OR DBP> or= 110 Protocol Labetalol HCl 20 mg 10/13/24 21:26 Labetalol 20 Mg/4 Ml Syringe IVP .ONCE PRN SBP >=160 and/or DBP >=110 Protocol Lidocaine HCl 20 ml 10/13/24 05:14 Lidocaine 1% 20 Ml Mdv ID 10/16/24 05:14 .ONCE PRN PERINEAL REPAIR Methylergonovine Maleate 0.2 mg 10/13/24 05:14 Methylergonovine 0.2 Mg/Ml Vial IM .ONCE PRN Hemorrhage Misoprostol 600 mcg 10/13/24 05:14 Misoprostol 200 Mcg Tablet BC .ONCE PRN Hemorrhage Misoprostol 800 mcg 10/13/24 05:14 Misoprostol 200 Mcg Tablet ND .ONCE PRN Hemorrhage Naloxone HCl 0.4 mg 10/13/24 21:26 Naloxone 0.4 Mg/Ml Vial IVP .ONCE PRN Opioid Overdose Nifedipine 10 - 20 mg 10/13/24 05:14 Nifedipine 10 Mg Capsule PO Q20M PRN SBP> or= 160 OR DBP> or= 110 Protocol Nifedipine 10 - 20 mg 10/13/24 21:26 Nifedipine 10 Mg Capsule PO Q20M PRN SBP >=160 and/or DBP >=110 Protocol Oxytocin 10 unit 10/13/24 05:14 Oxytocin 10 Unit/Ml Vial IM .ONCE PRN Step One if no IV access. Simethicone 80 mg 10/13/24 21:26 Simethicone Chew 80 Mg Tablet PO TID PRN Gas Sodium Chloride 10 ml 10/13/24 05:14 Sodium Chloride Flush 0.9% 10 Ml Syringe IVP PRN PRN NEEDED PER PROVIDER ORDERS Sodium Chloride 10 ml 10/13/24 06:00 10/13/24 23:51 Sodium Chloride Flush 0.9% 10 Ml Syringe IVP Not Given Q8H CHAS Terbutaline Sulfate 0.25 mg 10/13/24 05:14 Terbutaline 1 Mg/Ml Vial SUBQ .ONCE PRN Tachystole Witch Poonam/Glycerin 1 pad 10/13/24 21:26 Witch Poonam/Glycerin 1 Pad TOP PRN PRN ITCHING Objective Vital Signs/Intake & Output Vital Signs: Vital Signs x48h Temp Pulse Resp BP 10/14/24 06:30 37 C 85 14 114/66 10/14/24 03:00 37.3 C 114 H 16 127/59 L Intake & Output: Intake & Output 10/12/24 10/13/24 10/14/24 10/15/24 05:59 05:59 05:59 05:59 Intake Total 1283 / 1283 Balance 1283 / 1283 Weight (kg) 200 lb Lab Results 10/13/24 05:30 10/13/24 05:30 Assessment/Plan Problem List (1) Vacuum extractor delivery, delivered: Impression: Routine care. Anticipate discharge tomorrow (2) Delivery outcome of michel :
[2024-10-14 22:18] VITALS: O2SAT 99
[2024-10-15] MEDS: DOCUSATE SODIUM 100 MG CAPSULE PO SCH (05:37)
--- NOTE | 2024-10-15 10:09 | Discharge Summary ---
Discharge Summary Admit Date: 10/13/24 Discharge Date: 10/15/24 Discharging Provider: Rupert Da Silva MD Code Status: Attempt Resuscitation DIAGNOSES Admission Diagnoses: Term Labor GBS positive Discharge Diagnoses with Status of Each Condition: Status post vacuum-assisted vaginal delivery Shoulder dystocia Delivery of live michel [place] HPI History of Present Illness: Subjective Patient reports she is doing well. Lochia appropriate. Denies heavy bleeding. Ambulating. Pelvic and abdominal pain well-controlled. Tolerating oral intake. Diet: Regular. Voiding without difficulty. Passing flatus. Denies BM. Patient is bonding with baby in room Breast feeding going well. Supplementing with formula Denies feeling lightheaded, dizzy or excessively fatigued. Objective General: Alert, oriented, no apparent distress. Cardiovascular: Regular rate. Regular rhythm. Lungs: No increased work of breathing. Abdomen: Uterus firm. Below umbilicus. No guarding or rebound. Extremities: No pain on palpation. No cords palpated. Distal pulses intact. HOSPITAL COURSE Hospital Course: Patient presented at 40 weeks gestation in active labor gayla regular anterior cervix. Later in the day she had amniotomy and progressed to complete. She used nitrous oxide for pain control. Delivery was complicated by a vacuum- assisted vaginal delivery and shoulder dystocia that was resolved easily. course was unremarkable. She was discharged with her on day 2. ALLERGIES Allergies Allergy/AdvReac Type Severity Reaction Status Date / Time Sulfa (Sulfonamide Allergy Rash Verified 10/09/24 10:48 Antibiotics) MEDICATIONS Ambulatory Orders Medication Instructions Recorded Confirmed vits no.126-ferrous fum 1 tab PO QDAY 08/28/24 10/09/24 28 mg iron-folic acid 800 mcg tablet (Classic ) acetaminophen 500 mg tablet 1,000 mg (2 x 500 mg) PO Q8HR #60 10/15/24 tabs docusate sodium 100 mg capsule 100 mg PO BID #60 caps 10/15/24 ibuprofen 800 mg tablet 800 mg PO Q8H PRN Moderate Pain 10/15/24 (Level 4-6) #60 tabs LABS 10/13/24 05:30 10/13/24 05:30 FOLLOW UP Follow Up: With [facility] women's care in 1 to 2 weeks TIME SPENT Time Spent in Discharge (Minutes): 2 Discharge Plan Discharge Patient Disposition: Home, Self Care Prescriptions: New ibuprofen 800 mg Tablet 800 mg PO Q8H PRN (Reason: Moderate Pain (Level 4-6)) Qty: 60 0RF acetaminophen 500 mg Tablet 1,000 mg PO Q8HR Qty: 60 0RF docusate sodium 100 mg Capsule 100 mg PO BID Qty: 60 0RF Continued Classic 28 mg iron- 800 mcg tablet 1 tab PO QDAY Print Language: Lao Patient Instructions: Vaginal After, Depression Follow-up Care: Rupert Da Silva MD [Primary Care Provider] -
--- NOTE | 2024-10-15 15:17 | Labor Flowsheet ---
Labor Flowsheet Datetime Report Generated by CPN: 10/15/2024 15:17 Datetime: 10/15/2024 14:40 VITAL SIGNS NBP Sys/Aida/Mean (mmHg): 125 : 78 : 88 Pulse: 93 Datetime: 10/13/2024 23:30 Stage of : Datetime: 10/13/2024 21:15 Temperature (C): 37.4 Datetime: 10/13/2024 20:46 Stage 2 Comments: cord cut Datetime: 10/13/2024 20:45 Vacuum: Off Datetime: 10/13/2024 20:38 Patient Care Comments: straight cath Datetime: 10/13/2024 20:34 Comments: dr oscar notified needed for delivery Datetime: 10/13/2024 20:30 UTERINE ACTIVITY Monitor Mode: External Frequency (min): 2-3 Quality: Strong Duration (sec): 50-80 Pattern: Normal: <= 5 Contractions in 10 Minutes Resting Tone (Palpate): Relaxed ASSESSMENT A Monitor Mode: Telemetry FHR Baseline Rate : 135 Variability: Moderate 6-25 bpm Accelerations: 15X15 Category: Category II Datetime: 10/13/2024 20:00 Monitor Interventions for UA: [place] Adjusted Decelerations: Late Datetime: 10/13/2024 19:56 PATIENT CARE Patient Position/Activity: Standing Datetime: 10/13/2024 19:38 I/O Interventions: Up to BR Datetime: 10/13/2024 19:27 Monitor Interventions for FHR: Ultrasound Adjusted Datetime: 10/13/2024 19:10 Actions for Decelerations: IV Bolus Datetime: 10/13/2024 19:03 COMMUNICATION Communication: Report Given to @ Mikayla, RN Datetime: 10/13/2024 19:00 FHR Baseline Changes: No Baseline Change Datetime: 10/13/2024 18:34 STAGE 2 Pushing: Coached on Pushing Pushing Position: Pushing with Contractions Pushing Progress: Descent with Pushing Datetime: 10/13/2024 18:13 VAGINAL EXAM Dilatation (cm): 10.0 Effacement (%): 100 Station: 0 Datetime: 10/13/2024 17:24 Communication Comments: pt sitting backwards on toilet Datetime: 10/13/2024 17:09 Exam by: Gail M, RN Vaginal Bleeding: Moderate LaborFlag: Labor Datetime: 10/13/2024 16:04 Antibiotics: Ampicillin IV 1 Gm Datetime: 10/13/2024 15:19 Membranes Rupture Method: Artificial Amniotic Fluid Color: Clear Amniotic Fluid Amount: Moderate Amniotic Fluid Odor: Normal Datetime: 10/13/2024 15:09 Medication Comments: Nitrous Oxide in use and educated on Datetime: 10/13/2024 13:54 Respirations: 20 SpO2 (%): 97 Datetime: 10/13/2024 10:56 Vaginal Exam Comments: moderate bloody show noted Datetime: 10/13/2024 09:19 Temperature Route: Oral Datetime: 10/13/2024 08:49 Provider Reviewed Strip: Yes Datetime: 10/13/2024 08:24 MEDICATIONS Pitocin (milliunits): Started @ (Annotations: ERROR DOCUMENTATION-NO PITOCIN AT THIS TIME) Datetime: 10/13/2024 06:34 Provider Notified (Name): Dr Avinash Datetime: 10/13/2024 06:10 Membranes Ruptured Date/Time: 10/13/2024 15:20
== END 2024-10-15 15:00 | disposition home or self-care (01) | DRG 807 ==
LOC: WFO 04:52 → FBP 04:55
PROVIDERS: ADMIT Obstetrics & Gynecology; ATTEND Obstetrics & Gynecology
DX: O99.824 Streptococcus B carrier state complicating childbirth; O76 Abnormality in fetal heart rate and rhythm complicating labor and delivery; Z37.0 Single live birth; O66.0 Obstructed labor due to shoulder dystocia; O70.1 Second degree perineal laceration during delivery; O48.0 Post-term pregnancy; Z3A.40 40 weeks gestation of pregnancy